=== PATIENT | female | born 1975 | race Caucasian/White ===

== ENCOUNTER 2019-05-11 09:10 | Emergency (ER) | payer OTHER ==
[~2019-05-11 09:10] MED LIST: AZI250 PO; HYDR-2966 PO; HYDR12.561 PO; IBUP600T22 PO; LISI5TAB25 PO; NO RTN MEDS
--- NOTE | 2019-05-11 09:25 | ER Report ---
History and Physical Time Seen By MD: 09:22 Hx. of Stated Complaint: PATIENT REPORTS BITES ON HER LEFT HAND. SHE FIRST NOTICED THEM ON SATURDAY OF LAST WEEK. HPI/ROS Bug bites to left hand for 2 days. No with bite on right hand. Puritic. No pain. Only on dorsum of hands. No otero involvement. No fever/chills. No travel. [place] town. No known exposure. Has cleaned home/bed. No other symptoms. Remainder of the 14 system rev: Yes Allergies: Coded Allergies: clindamycin (Verified Allergy, Intermediate, RASH, 10/02/17) Home Meds Active Scripts Hydrochlorothiazide (HYDROCHLOROTHIAZIDE) 25 Mg Tablet, 1 TAB PO QDAY, #90 TAB 1 Refill Prov:TALIB ALVARADO APRN [employer] 03/24/19 Lisinopril (LISINOPRIL) 5 Mg Tablet, 1 TAB PO QDAY, #90 TAB 1 Refill Prov:TALIB ALVARADO APRN-C 03/12/19 Reviewed Nurses Notes: Yes Hx Smoking: No Smoking Status: Never Smoker Exposure to Second Hand Smoke?: Yes Hx Substance Use Disorder: No Hx Alcohol Use: No Constitutional Vital Sign - Last 24 Hours 05/11/19 09:14 Temp 98.4 Pulse 84 Resp 16 B/P (MAP) 148/92 Pulse Ox 93 O2 Delivery Room Air Physical Exam General appearance: Alert no distress. Skin: 2 small bite type lesions on dorsum of left hand with darkened center and surrounding ring-like erythema. Smaller bite on right hand with similar appearance without surrounding erythema. No other rashes/bites Medical Decision Making ED Course/Re-evaluation ED Course No systemic symptoms. Not c/w Lyme/RMSF. Multiple bites on hands likely mosquito bites while outdoors and wearing long sleeves. No cellulitis. Not herpetic-like. Ring-like erythema c/w immune response. Will treat with Zyrtec and topical cortisone cream. Will return to the ED if she develops a fever or rash worsens in severity. Decision to Disposition Date: May 11, 2019 Decision to Disposition Time: 10:09 Depart Departure Latest Vital Signs Vital Signs Date Time Temp Pulse Resp B/P (MAP) Pulse Ox O2 Delivery O2 Flow Rate FiO2 05/11/19 09:14 98.4 84 16 148/92 93 Room Air Impression: Primary Impression: Bug bite of hand Condition: Improved Disposition: HOME OR SELF-CARE Referrals: TALIB ALVARADO APRN [employer] (PCP) Patient Instructions: Insect Bite or Sting (ED) Problem Qualifiers Primary Impression: Bug bite of hand Encounter type: initial encounter Laterality: left Qualified Codes: S60.562A - Insect bite (nonvenomous) of left hand, initial encounter; W57.XXXA - Bitten or stung by nonvenomous insect and other nonvenomous arthropods, initial encounter FABIANO PISANO MD May 11, 2019 09:25
[2019-05-11] MEDS ORDERED: HYDROCORTISONE 2.5% CR 30GM TB PR ONE (09:55)
[2019-05-11] MEDS ORDERED: CETIRIZINE HCL 10 MG TAB PO ONE (09:55)
[2019-05-11] MEDS ORDERED: HYDROCORTISONE 1% CR 28.35 GM TP ONE (10:05)
[2019-05-11 10:17] VITALS: BP 132/78
== END 2019-05-11 10:18 | disposition home or self-care (01) ==
LOC: ER 09:30
DX: S60.562A Insect bite (nonvenomous) of left hand, initial encounter (principal); W57.XXXA Bitten or stung by nonvenomous insect and other nonvenomous arthropods, initial encounter
CPT/HCPCS: 99283